=== PATIENT | male | born 1940 | race Hispanic/Latino ===

== ENCOUNTER → 2019-02-15 | Outpatient (CLI) | payer OTHER, MEDICARE ==
[2019-02-15 16:06] LABS: CREATININE 6.4 mg/dL (0.5-1.5)
== END | disposition home or self-care (01) ==
LOC: LAB 15:12
PROVIDERS: ATTEND Otolaryngology Plastic Surgery within the Head & Neck
DX: H90.3 Sensorineural hearing loss, bilateral (principal); H93.13 Tinnitus, bilateral
CPT/HCPCS: 36415; 82565; 84520

== ENCOUNTER → 2019-02-20 | Outpatient (CLI) | payer OTHER, MEDICARE | END | disposition home or self-care (01) | LOC: RAH 09:29 | PROVIDERS: ATTEND Otolaryngology Plastic Surgery within the Head & Neck | DX: G31.9 Degenerative disease of nervous system, unspecified (principal); H70.92 Unspecified mastoiditis, left ear; H90.3 Sensorineural hearing loss, bilateral | CPT/HCPCS: 70551 ==

== ENCOUNTER 2020-12-19 08:53 | Day surgery (SDC) | payer MEDICAID ==
[2020-12-17 10:32] LABS: BASOPHILS % (AUTO) 1.2 % (0.0-5.0); EOSINOPHILS % (AUTO) 3.4 % (0.0-8.0); LYMPHOCYTES % (AUTO) 17.6 % (21.0-51.0); MEAN CORPUSCULAR HEMOGLOBIN 29.9 pg (27.0-33.0); MEAN CORPUSCULAR HGB CONC 31.1 g/dL (32.0-36.0); MEAN CORPUSCULAR VOLUME 96.2 fL (79-99); MONOCYTES % (AUTO) 11.7 % (3.0-13.0); NEUTROPHILS % (AUTO) 65.7 % (40.0-77.0); PLATELET COUNT (AUTO) 193 K/uL (130-400); RED BLOOD CELL COUNT(AUTO) 3.64 MIL/uL (4.00-5.50); WHITE BLOOD COUNT (AUTO) 4.9 K/uL (4.8-10.8)
[2020-12-17 10:43] LABS: CREATININE 3.7 mg/dL (0.5-1.5); POTASSIUM 3.9 mmol/L (3.5-5.1)
[2020-12-17 10:47] LABS: PROTHROMBIN TIME 10.9 SEC (9.6-11.6)
[2020-12-17 10:48] LABS: PARTIAL THROMBOPLASTIN TIME 30.4 SEC (26.3-35.5)
[2020-12-18 09:45] VITALS: BP 132/52
[2020-12-19] VITALS (10 sets, daily range): BP systolic 145–162; BP diastolic 59–85
[~2020-12-19] VITALS: Ht 154.9 cm; Wt 56.3 kg
[~2020-12-19 08:53] MED LIST: 0.9% NACL 500ML IV.SOLN 500 ML IV SCH; 0.9%NACL 1000ML 1,000 ML IV ONE; AMLO-258 PO; CALC667T8 PO; CARV3.12 PO; DULO30CA52 PO; LEVO50CA4 PO; LISI2.5T13 PO; TRAM50TA4 PO; VITAMIN E PO
[2020-12-19] MEDS ORDERED: SODIUM BICARB 50MEQ 50ML VIAL 50 ML ONE (09:17)
[2020-12-19] MEDS ORDERED: BIVALIRUDIN 250 MG/VIAL IV ONE (09:17)
[2020-12-19] MEDS ORDERED: FENTANYL CITRATE PF 50 MCG/1 ML 2ML VIAL ONE (09:18)
[2020-12-19] MEDS ORDERED: IOHEXOL 350 MG/ML 100ML INFUS..BTL IV ONE ×2 (09:18→11:16)
[2020-12-19] MEDS ORDERED: NITROGLYCERIN 2 MG VIAL IV ONE (09:18)
[2020-12-19] MEDS ORDERED: LIDOCAINE HCL 400MG/20ML VIAL ONE (09:18)
[2020-12-19] MEDS ORDERED: MVIT PO (09:46)
[2020-12-19] MEDS ORDERED: MIDAZOLAM HCL 1 MG/ML 2ML VIAL ONE (10:57)
[2021-06-08] MEDS ORDERED: ALBU2.5V2 IH (06:19)
[2021-06-08] MEDS ORDERED: DICL100G27 TP (06:23)
[2021-06-09] MEDS ORDERED: MULT-662 PO (02:50)
[2021-06-09] MEDS ORDERED: BENZ-70 PO (02:56)
[2021-06-09] MEDS ORDERED: ACET-2123 PO (02:56)
[2021-06-09] MEDS ORDERED: CEPH500B PO (13:11)
== END 2020-12-19 16:40 ==
LOC: DAH 08:53 → EDSEX 10:00 → DAH 16:40
PROVIDERS: ATTEND Internal Medicine Cardiovascular Disease
DX: I13.2 Hypertensive heart and chronic kidney disease with heart failure and with stage 5 chronic kidney disease, or end stage renal disease (principal); I34.0 Nonrheumatic mitral (valve) insufficiency; I20.8 Other forms of angina pectoris; I50.22 Chronic systolic (congestive) heart failure; N18.6 End stage renal disease; I50.30 Unspecified diastolic (congestive) heart failure; Z99.2 Dependence on renal dialysis; Z79.01 Long term (current) use of anticoagulants; Z79.899 Other long term (current) drug therapy
CPT/HCPCS: 36415; 71045; 80048; 85025; 85610; 85730; 93005; 93460; A4215; A4216; A4221; A4222; A4223 ×3; A4606; A4663; A6260; C1760; C1894 ×3; J1644; J2250; J3010; J3490 ×3; J7030; Q9965 ×3; Q9967; 99156; 99157; J0583

== ENCOUNTER → 2023-09-19 | Outpatient (CLI) | payer OTHER, MEDICARE ==
[~2023-09-19] MED LIST changes: -0.9% NACL 500ML IV.SOLN 500 ML IV SCH; -0.9%NACL 1000ML 1,000 ML IV ONE; +ACET-2123 PO; +ALBU2.5V2 IH; +BENZ-226 PO; -CARV3.12 PO; +DEXA6TAB PO; +DICL100G32 TP; -LISI2.5T13 PO; +MULT-662 PO
[2023-09-19 12:30] LABS: CREATININE 7.1 mg/dL (0.5-1.5)
== END | disposition home or self-care (01) ==
LOC: LAB 08:50
PROVIDERS: ATTEND Internal Medicine Cardiovascular Disease
DX: N18.6 End stage renal disease (principal)
CPT/HCPCS: 36415; 80048